=== PATIENT | female | born 1960 | race Caucasian/White ===

== ENCOUNTER → 2016-11-05 | Outpatient (CLI) | payer OTHER ==
[~2016-11-05] MED LIST: ALAVERT D-12 HO1 T12 PO; CRESTOR10 MG PO; LASIX20 MG PO; LEVOTHYROXIN0.075 MG PO; MEDROL DOSEPAK4 MG PO; PENICILLIN VK500 MG PO; SYNTHROID0.125 MG PO; TRAMADOL HCL50 MG PO
== END | disposition home or self-care (01) ==
LOC: RAD 14:45
DX: M94.0 Chondrocostal junction syndrome [Tietze] (principal); R09.89 Other specified symptoms and signs involving the circulatory and respiratory systems; Z87.891 Personal history of nicotine dependence

== ENCOUNTER → 2018-07-30 | Outpatient (CLI) | payer OTHER ==
[~2018-07-30] MED LIST changes: -LEVOTHYROXIN0.075 MG PO; +LEVOXYL88 MCG PO
--- NOTE | ~2018-07-30 | ST ---
[place], [place] EXERCISE STRESS TEST REPORT NAME: DILLAN PAYAN UNIT #: [id number] ROOM: DOCTOR: CAYETANO KAUR MD BIRTHDATE: [birth year] DOS: 07/30/2018 INDICATIONS: Chest pain. PROCEDURE: The patient walked on a full Kyle protocol for 6 minutes and achieved a maximum heart rate of 142, which represented 87% of her maximum predicted heart rate. She did have pleuritic chest pain with exercise, but was able to complete the protocol. Her resting electrocardiogram was normal. She did develop [address] segment depression in the mid precordial leads with exercise. The EKG changes resolved within 1 minute of recovery. One minute prior to completion of exercise protocol, the patient was given radionuclide intravenously. IMPRESSION: 1. Adequate exercise capacity. The patient did have pleuritic chest pain and equivocal electrocardiographic changes with exercise. 2. Newberry treadmill score -3 consistent with moderate risk for cardiac events. 3. Radionuclide administered. Please see the separate imaging report for further details of the patient's stress test results. CAYETANO KAUR MD CM:STRESS:EXERCISE STRESS TEST REPORT [id number] CAYETANO KAUR MD
== END | disposition home or self-care (01) ==
LOC: CARD 01:05
DX: R07.89 Other chest pain (principal); R53.81 Other malaise

== ENCOUNTER → 2019-05-04 | Day surgery (SDC) | payer OTHER ==
[~2019-05-04] VITALS: Ht 152.4 cm; Wt 77.1 kg
[~2019-05-04] MED LIST changes: +CETIRIZINE HYDR10 MG PO; +IBU800 M1 PO; +Synthroid,Levo88 MCG PO; +VITAMIN D400 I1 PO
--- NOTE | ~2019-05-04 | O ---
[place], [place] OPERATIVE NOTE NAME: DILLAN PAYAN UNIT #: [id number] ROOM: DOCTOR: KASH FRAUSTO MD BIRTHDATE: [birth year] DOS: 05/04/2019 HISTORY OF PRESENT ILLNESS: A 58-year-old patient who has presented with chief complaint of colonic screening, undergone investigation. ALLERGIES: PENICILLIN. FAMILY HISTORY: Noncontributory. PAST SURGICAL HISTORY: Unremarkable. PAST MEDICAL HISTORY: Hypothyroidism, seasonal allergies. PROCEDURE: Today's procedure part of investigation is colonoscopy. PREMEDICATION: Propofol. SCOPE: Olympus forward-viewing colonoscope 10L video. REPORT: After putting the patient in left lateral position and application of lubricant to the scope, the scope was introduced. Thereafter, under direct visualization, advanced through the length of colon without difficulty. Colon mucosa and vascularity carefully examined. No ulceration, no lesion was seen. Base of the cecum explored, appendiceal orifice identified, and ileocecal valve was defined. The patient extubated, tolerated the procedure well. IMPRESSION: Normal colonoscopic examination. PLAN AND DISCUSSION: High fiber diet. ACTIVITY: Ad sergei. FOLLOWUP: Colonoscopic follow up in 10 years. Thank you very much indeed for your kind referral. [place], [place] OPERATIVE NOTE NAME: DILLAN PAYAN UNIT #: [id number] ROOM: DOCTOR: KASH FRAUSTO MD BIRTHDATE: [birth year] KASH FRAUSTO MD CM:OPRECORD:OPERATIVE NOTE [id number] KASH FRAUSTO MD 05/04/19 0904 interface
[2019-05-04 07:15] VITALS: BP 130/82
[2019-05-04 08:18] VITALS: BP 127/58
[2019-05-04 08:30] VITALS: BP 129/61
[2019-05-04 08:50] VITALS: BP 150/60
== END | disposition home or self-care (01) ==
LOC: SDC 04-29 10:15
DX: Z12.11 Encounter for screening for malignant neoplasm of colon (principal); E03.9 Hypothyroidism, unspecified; E55.9 Vitamin D deficiency, unspecified; E66.9 Obesity, unspecified; Z68.33 Body mass index [BMI] 33.0-33.9, adult; Z79.899 Other long term (current) drug therapy; Z82.3 Family history of stroke

== ENCOUNTER 2019-11-09 10:24 | Emergency (ER) | payer OTHER ==
[~2019-11-09] VITALS: Wt 78.0 kg
[2019-11-09 11:16] LABS: BASO # 0.1 10*3/uL (0.0-0.1); BASO % 0.7 % (0.0-1.0); EOS # 0.3 10*3/uL (0.0-0.4); EOS % 3.5 % (1.0-4.0); HEMATOCRIT 36.6 % (37.0-47.0); LYMPH # 3.5 10*3/uL (1.3-4.4); LYMPH % 41.4 % (27.0-41.0); MEAN CELL VOLUME 87.4 fl (81.0-99.0); MEAN CORPUSCULAR HGB 30.1 pg (27.0-31.0); MEAN CORPUSCULAR HGB CONC 34.4 g/dl (33.0-37.0); MONO # 0.7 10*3/uL (0.1-1.0); MONO % 8.7 % (3.0-9.0); NEUT # 3.8 10*3/uL (2.3-7.9); NEUT % 45.5 % (47.0-73.0); PLATELET COUNT AUTOMATED 348 10*3/uL (130-400); RED BLOOD COUNT 4.19 10*6/uL (4.10-5.10); RED CELL DISTRI WIDTH 13.1 % (0-14.5); WHITE BLOOD COUNT 8.4 10*3/uL (4.8-10.8)
[2019-11-09 11:26] LABS: ACT PARTIAL THROMBO TIME 25.7 SECONDS (20.0-32.1); INTERNATIONAL NORM RATIO 0.9 (2.0-3.5)
[2019-11-09 11:30] LABS: ALBUMIN 3.4 gm/dl (3.1-4.5); ALKALINE PHOSPHATASE 111 U/L (45-117); BUN 16 mg/dl (7-24); CHLORIDE 110 mmol/L (98-107); LIPASE 83 U/L (73-393); POTASSIUM 3.7 mmol/L (3.5-5.1); SGOT/AST 28 IU/L (3-35); SGPT/ALT 36 U/L (12-78); SODIUM 141 mmol/L (136-145)
[2019-11-09 11:31] LABS: TROPONIN I < 0.015 ng/ml (<0.045)
[2019-11-09] MEDS ORDERED: ZITHROMAX250 MG PO (12:45)
== END 2019-11-09 12:47 | disposition home or self-care (01) ==
LOC: ED 10:24
PROVIDERS: Emergency Medicine
DX: J20.9 Acute bronchitis, unspecified (principal); R09.1 Pleurisy; E03.9 Hypothyroidism, unspecified; E78.00 Pure hypercholesterolemia, unspecified; F17.200 Nicotine dependence, unspecified, uncomplicated; Z88.0 Allergy status to penicillin; Z79.899 Other long term (current) drug therapy